=== PATIENT | male | born 1985 | race Caucasian/White ===

== ENCOUNTER 2016-11-27 12:19 | Emergency (ER) | payer BC, OTHER | END 2016-11-27 15:43 | disposition home or self-care (01) | LOC: ER 12:19 | DX: J11.1 Influenza due to unidentified influenza virus with other respiratory manifestations (principal); D69.6 Thrombocytopenia, unspecified; R42 Dizziness and giddiness | CPT/HCPCS: 36415; 96361; 96374 ==